=== PATIENT | female | born 1990 | race African-American/Black ===

== ENCOUNTER → 2019-12-23 11:09 | Outpatient (CLI) | payer SELFPAY ==
--- NOTE | ~2019-12-23 | US_ITS ---
EXAMINATION: US pelvic complete w TV DATE: 12/23/2019 11:57 INDICATION: Uterine leiomyoma TECHNIQUE: Multiple transabdominal and endovaginal sonographic images of the pelvis were obtained. COMPARISON: None. FINDINGS: The uterus measures 10.0 x 5.3 x 7.2 cm. There is a 5.3 x 4.9 x 5.2 cm mass with peripheral calcification in the uterine fundus. The endometrial complex measures 7 mm. The right ovary measures 4.3 x 2.9 x 3 cm. There is a 2.9 x 2.1 x 2.7 cm solid lesion of the right ovary. The left ovary esthela ures 4.3 x 4.9. There is normal vascular flow in the ovaries. There is no free fluid in the pelvis. IMPRESSION: 1. Calcified uterine fibroid measuring up to 5.3 cm. 2. Likely endometrioma of the right ovary. Follow-up ultrasound in 6-12 weeks is recommended. Reviewed, dictated and finalized at location A. IMPRESSION: 1. Calcified uterine fibroid measuring up to 5.3 cm. 2. Likely endometrioma of the right ovary. Follow-up ultrasound in 6-12 weeks i s recommended.
== END ==
PROVIDERS: Visit Provider Obstetrics & Gynecology
DX: D25.9 Leiomyoma of uterus, unspecified (principal)
CPT/HCPCS: 76830; 76856

== ENCOUNTER → 2020-01-16 13:12 | Outpatient (CLI) | payer SELFPAY ==
--- NOTE | ~2020-01-16 | US_ITS ---
EXAMINATION: US pelvic complete w TV DATE: 01/16/2020 13:54 INDICATION: Follow-up fibroids. Comparison:Ultrasound dated 12/23/2019 TECHNIQUE: Multiple transabdominal and endovaginal sonographic images of the pelvis performed. FINDINGS: The uterus measures 9.7 x 4.5 x 6.7 cm. There is a calcified uterine fibroid measuring 4.4 x 4.6 x 4.1 cm. The endometrial complex measures 6 mm. The right ovary measures 4.6 x 2.6 x 2.8 cm and the left ovary measures 3.5 x 2.5 x 1.9 cm. Left ovar y is unremarkable with follicular changes. Right ovary contains a 1.7 cm cyst. In addition, there is a solid isoechoic mass measuring 3 x 2 x 2.7 cm which is unchanged. There is no free fluid in the pelvis. There are no abnormal masses seen on either side. IMPRESSION: 1. Stable solid isoechoic right ovarian mass measuring 3 cm, most likely benign. Considerations inclu de endometrioma and dermoid. Consider correlation with follow-up ultrasound in 3-6 months. 2: Mildly enlarged uterus containing a 4.6 cm calcified fibroid. Reviewed, dictated and finalized at location A. IMPRESSION: 1. Stable solid isoechoic right ovarian mass measuring 3 cm, most likely benign . Considerations include endometrioma and dermoid. Consider correlation with fo llow-up ultrasound in 3-6 months. 2: Mildly enlarged uterus containing a 4.6 cm calcified fibroid.
== END ==
PROVIDERS: Visit Provider Obstetrics & Gynecology
DX: N83.209 Unspecified ovarian cyst, unspecified side (principal); D25.9 Leiomyoma of uterus, unspecified
CPT/HCPCS: 76830; 76856

== ENCOUNTER → 2020-05-20 14:02 | Outpatient (CLI) | payer SELFPAY ==
--- NOTE | ~2020-05-20 | US_ITS ---
US OB <=14 wk fetus w TV DATE: 05/20/2020 14:37 INDICATION: Gestational age determination TECHNIQUE: Real-time imaging via transabdominal and transvaginal approaches COMPARISON: 01/12/2020 pelvic ultrasound examination FINDINGS: The uterus measures 11.1 cm height, 6.4 cm AP and 7 cm transverse dimension. There is a 4.6 x 5.1 x 4.4 cm calcified uterine fibroid. An intrauterine gestational sac is identified with normal surrounding hyperechogenicity consistent wi th decidual reaction and normal amount of amniotic fluid. pole and yolk sac are detected. heart rate of 174 bpm. [place]-rump length measures 2.05 cm, consistent with 8 weeks 5 days +/- 5 days estimated gestational a ge; MANUELITO is 12/25/2020, compared to 12/26/2020 by LMP. 2 x 3.3 cm and 1.5 x 1.8 cm right ovarian cysts. The left ovary is unremarkable. No abnormal pelvic free fluid collection is detected. IMPRESSION: Estimated gestational age is 8 weeks 5 days +/- 5 days; MANUELITO by ultrasound is 12/25/2020 4.6 x 5.1 x 4.4 center calcified uterine fibroid Right ovarian cysts measuring up to 3.3 and 1.8 cm Reviewed, dictated and finalized at Location [facility]. Reviewed, dictated and finalized at location A. FIC INSPECTOR IMPRESSION: Estimated gestational age is 8 weeks 5 days +/- 5 days; MANUELITO by ultr asound is 12/25/2020 4.6 x 5.1 x 4.4 center calcified uterine fibroid Right ovarian cysts measuring up to 3.3 and 1.8 cm
== END ==
PROVIDERS: Visit Provider Obstetrics & Gynecology
DX: Z34.91 Encounter for supervision of normal pregnancy, unspecified, first trimester (principal); Z3A.08 8 weeks gestation of pregnancy; N83.201 Unspecified ovarian cyst, right side
CPT/HCPCS: 76801; 76817

== ENCOUNTER 2020-10-27 10:00 | Outpatient (RCR) | payer OTHER, SELFPAY ==
--- NOTE | 2020-09-28 12:37 | PTOPEVAL ---
PHYSICAL THERAPY EVALUATION AND PLAN OF CARE Thank you for referring Serafin Howard to [facility].? The patient is scheduled to be seen for therapy? 1x/week for 4 weeks. Please review, sign, date and return this plan of care TABATHA. I agree with and certify that the following plan of care is medically necessary. Referring Physician Date Attending Provider: Quang Brooks MD Evaluation Diagnosis low back pain and right radiculpathy Onset 07/2020 Subjective Information Elizabeth is here with c/o low Query Text:As Reported By Patient/ back pain with right Family radiculopathy and sometimes feels symptoms shooting down the right leg. She is 5months and is healthy at this time. States that sitting for long periods of time increases back pain. Self Report Pain Assessment Right Spine, Lumbar Reported Pain Level 2 Pain Description Aching Pain Score Pain Score 2: Self Report Interventions Used Interventions Used By Clinicians Exercise Lower Extremity Muscle Strength Testing Hip Strength Left Hip Flexion Strength 5 Normal Hip Extension Strength 4- Good - Hip Abduction Strength 4+ Good + Right Hip Flexion Strength 5 Normal Hip Extension Strength 3+ Fair + Hip Abduction Strength 4- Good - Knee Strength Bilateral Knee Flexion Strength 5 Normal Knee Extension Strength 5 Normal Posture Posture Standing Position Posture Evaluation View Posterior Head/C-Spine Posture Neutral Position Thorax Posture Bases Flared Lumbar Spine Posture Increased Lordosis Pelvis Posture Anteriorly Tilted,(R) Rotated Anterior Weight Distribution Balanced Additional Posture Comments single leg balance: positive Trendelenburg on each side, right side worse than left; pain when lifting right leg up Palpation Assessment Palpation Palpation tender to palpation along right SIJ and right glutes Special Test-Spine Lumbar Spine Special Tests Crossed Straight Leg Raise Test Negative Right,Negative Left Straight Leg Raise Test Negative Right,Negative Left PT Clinical Summary Elizabeth is a 30 yo female, 5months , presenting to outpatient physical therapy with new onset low back pain
--- NOTE | 2020-10-07 11:48 | PCPTNOTE ---
Patient did not show up for scheduled appointment this date; patient answered phone with reminder call stated she just forgot, wrote down next appointment time for october 14 at 11:15.
--- NOTE | 2020-10-14 09:29 | PCPTNOTE ---
Patient called & cancelled scheduled appointment this date due to walking this morning.
--- NOTE | 2020-10-21 10:27 | PCPTNOTE ---
Patient did not show up for scheduled appointment this date. Called to remind her of her next appointment on 10/27 at 10:00AM.
--- NOTE | 2020-10-27 10:14 | PCPTNOTE ---
Patient did not show up for scheduled appointment this date.
--- NOTE | 2020-10-27 10:14 | PCPTNOTE ---
PHYSICAL THERAPY DISCHARGE NOTE Attending Provider: Quang Brooks MD Patient:Serafin Howard Date of :1990 Patient has not returned for any further treatments since 09/28/20, therefore she will be discharged at this time. Patient?s initial visit was on 09/28/2020. She attended the evaluation and then cancelled 1 appointment and no showed 3 appointments. Thank you for referring this patient to [facility]. Please review, sign, date and return this discharge summary TABATHA. I have been updated about the patient's current status and I agree with discharge from the above service at this time. Referring Physician Date
== END 2020-10-28 13:01 | disposition home or self-care (01) ==
LOC: ANHPT 10:00
PROVIDERS: Visit Provider Obstetrics & Gynecology
DX: M54.31 Sciatica, right side (principal); M54.2 Cervicalgia
CPT/HCPCS: 97162

== ENCOUNTER 2021-05-04 10:00 | Outpatient (RCR) | payer OTHER, SELFPAY ==
--- NOTE | 2021-03-09 13:57 | PTOPEVAL ---
Thank you for referring Serafin Howard to [facility].? The patient is scheduled to be seen for therapy? 1-2 x/week for 5 weeks. Please review, sign, date and return this plan of care TABATHA. I agree with and certify that the following plan of care is medically necessary. Referring Physician Date Attending Provider: Aviva Moreland MD Problem Diagnosis low back pain and abdominal diastasis recti Onset 01/02/21 Additional Evaluation Detail She was running and occasional resistance activities. 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 Subjective Information Reports increased low back Query Text:As Reported By Patient/ pain with standing task, Family walking, supine position with right leg movement. STates pain in greater in right buttock and leg region. She has mild increased pain with bending forward. Denies any changes in pain with carrying objects. She received an epidural with increased right low back pain. She has been performing occasional walking. She has not been performing any exercises because of her abdominal weakness. Pain Assessment Lower Back Reported Pain Level 4 Pain Description Aching Pain Frequency Continuous Greatest Pain Intensity 6 Pain Aggravating Factors Bending,Exercise/Activity, Walking,Weight Bearing/ Standing Cervical and Lumbar ROM Lumbar ROM Lumbar Flexion Active Floor:Hands to: Lumbar Comments 100% trunk flex/ext, no pain Cervical and Lumbar Muscle Testing Lumbar Strength Upper Abdominal Strength 2 Poor Lower Abdominal Strength 2 Poor Lumbar Functional Strength Comments diastisis reci appears as ~3 finger seperation Lower Extremity Muscle Strength Testing Hip Strength Right Hip Flexion Strength 4 Good Hip Extension Strength 3- Fair - Hip Abduction Strength 3- Fair - Left Hip Flexion Strength 4 Good Hip Extension Strength 3 Fair Hip Abduction Strength 3- Fair - Knee Strength Bilateral Knee Flexion Strength 3+ Fair + Knee Extension Strength 5 Normal Posture Posture Standing Position Head/C-Spi
--- NOTE | 2021-03-23 12:43 | PCPTNOTE ---
Patient called & cancelled scheduled appointment this date, did not leave a reason. This is Pt's first CX.
--- NOTE | 2021-03-25 12:49 | PCPTNOTE ---
Patient did not show up for scheduled appointment this date. Called to remind her visit, states she attempted to call,but did not reach anyone. Reminded her of her next visit and the cancellation policy of 3 missed visits.
--- NOTE | 2021-04-07 12:49 | PCPTNOTE ---
Patient did not show up for scheduled appointment this date. Called and left message on VM. No additional visits scheduled.
--- NOTE | 2021-04-07 14:20 | PTOPEVAL ---
Physical Therapy Progress Note Thank you for referring Serafin Howard to [facility].See summary below for updated progress. ? The patient is scheduled to be seen for therapy?1 x/week for 4 weeks. Please review, sign, date and return this plan of care TABATHA. I agree with and certify that the following plan of care is medically necessary. Referring Physician Date Attending Provider: Aviva Moreland MD Diagnosis low back pain and abdominal diastisis recti Onset 01/02/21 Additional Evaluation Detail She was running and occasional resistance activities. 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 Subjective Information She is performing her HEP 1x/ Query Text:As Reported By Patient/ wk but not consistently. Family Reports improved low back pain , but cont to increase with prolonged standing. Improved romulo with supine position and bed mobility. She does feel imbalance with walking. Pain Assessment Timing of Pain Assessment Timing of Pain Assessment Re-assessment Pain Scale Pain Scale Used Numeric (1 - 10) Self Report Pain Assessment Lower Back Reported Pain Level 5 Pain Description Aching Pain Frequency Continuous Lowest Pain Intensity 5 Greatest Pain Intensity 7 Pain Score Pain Score 5: Self Report Interventions Used Interventions Used By Clinicians Education,Exercise Cervical and Lumbar ROM Lumbar ROM Lumbar Flexion Active Floor:Hands to: Lumbar Comments 100% trunk flex/ext, lateral flex pain with trunk ext and lateral flex to right Cervical and Lumbar Muscle Testing Lumbar Strength Upper Abdominal Strength 2+Poor+ Lower Abdominal Strength 2 Poor Lower Extremity Muscle Strength Testing Hip Strength Right Hip Flexion Strength 4 Good Hip Extension Strength 3 Fair Hip Abduction Strength 3+ Fair + Hip Adduction Strength 3 Fair Left Hip Flexion Strength 4 Good Hip Extension Strength 3 Fair Hip Abduction Strength 3 Fair Hip Adduction Strength 3 Fair Knee Strength Bilateral Knee Flexion Strength 4+ Good + Knee Extension Strength 5 Normal Posture Posture Supine Position Pelvis Posture (L) Rotated Anterior Palpation Assessment Palpation Palpation tenderness of right PSIS,
--- NOTE | 2021-04-21 14:20 | PCPTNOTE ---
Patient did not show up for scheduled appointment this date. Called pt and informed them of their next appointment on 04/27/21.
--- NOTE | 2021-05-04 09:36 | PCPTNOTE ---
Patient called & cancelled scheduled appointment this date due to visitor restriction and unable to find a sitter for her baby. [ ]
--- NOTE | 2021-05-24 07:28 | PCPTNOTE ---
Admitting Provider: Attending Provider: Aviva Moreland MD Patient:Serafin Howard Date of :1990 Physical Therapy Discharge Summary Patient has not returned for any further treatments since 04/28/2021, therefore she will be discharged at this time. Patient?s initial visit was on 03/09/2021 12:30 and she had a total of 8 visits with 4 missed visits. The goals have been partially met. Thank you for referring this patient to [facility]. Please review, sign, date and return this discharge summary TABATHA. I have been updated about the patient's current status and I agree with discharge from the above service at this time. Referring Physician Date
== END 2021-05-24 08:45 | disposition home or self-care (01) ==
LOC: ANHPT 10:00
PROVIDERS: Visit Provider Urology
DX: M54.50 Low back pain, unspecified (principal); M62.08 Separation of muscle (nontraumatic), other site
CPT/HCPCS: 97014; 97110; 97140; 97162; G0283

== ENCOUNTER 2022-02-10 09:55 | Outpatient (CLI) | payer OTHER, SELFPAY | END 2022-02-10 09:56 | disposition home or self-care (01) | PROVIDERS: Visit Provider Obstetrics & Gynecology | DX: N92.6 Irregular menstruation, unspecified (principal) | CPT/HCPCS: 36415; 84702 ==

== ENCOUNTER 2022-03-14 14:57 | Emergency (ER) | payer OTHER, SELFPAY ==
--- NOTE | 2022-03-14 15:00 | ED.URI ---
HPI - URI/Sore Throat General Chief Complaint: Upper Respiratory Infection Stated Complaint: sore throat Time Seen by Provider: 03/14/22 15:00 Source: patient and RN notes reviewed History of Present Illness HPI Narrative: Patient is a 31-year-old female who presents to urgent care with complaints of a sore throat for 2 days. Patient denies a sinus congestion, fever, nausea, vomiting or headache. Patient states that she is approximately 8 weeks . Patient is not taking anything [id number] for her symptoms no other acute complaints. No acute distress noted. Patient aware of the plan of care. Some parts of this dictation were generated by voice recognition software and may contain typographical and/or grammatical inaccuracies. Related Data Allergies Allergy/AdvReac Type Severity Reaction Status Date / Time No Known Allergies Allergy Unverified 03/14/22 15:08 Review of Systems Review of Systems: CONSTITUTIONAL: Denies fever, chills, or sweats. EYES: Denies visual changes, redness, or discharge. ENT: Denies rhinorrhea, congestion, otalgia. Reports of sore throat CARDIOVASCULAR: Denies chest pain, palpitations, or edema. RESPIRATORY: Denies cough or dyspnea. GASTROINTESTINAL: Denies abdominal pain, nausea, vomiting, or diarrhea. GENITOURINARY: Denies dysuria or hematuria. SKIN: Denies rash or itching. MUSCULOSKELETAL: Denies back pain, joint pain, or myalgia. NEUROLOGIC: Denies headache, numbness, or weakness. All other systems reviewed are negative, except as documented in HPI. PMFSH Comments At the time of my signature, I reviewed and agree with the nursing past medical, surgical, social, and family history. There is no relevant family history pertinent to the patient complaint. Exam Narrative: GENERAL: This is a well-nourished, well-developed patient, in no apparent distress. HEAD: normocephalic, atraumatic. EYES: PERRL. Sclera clear/white. Vision is grossly intact. EARS: External ears normal, auditory canals clear and without drainage, TMs normal without perforation. Hearing grossly intact. NOSE: External nose normal with no obvious nasal discharge, nares without redness, no rhinorrhea. THROAT: Mucous membranes moist, posterior pharynx clear. Mild postnasal drainage NECK: Neck supple, non-tender without lymphadenopathy CARDIOVASCULAR: Regular rate and rhythm without murmurs, gallops, or rubs. RESPIRATORY: Clear to auscultation. Breath sounds equal bilaterally. No wheezes, rales, or rhonchi. SKIN: warm, intact with no suspicious lesions or rash, good texture and turgor. NEURO: awake, alert, and oriented to person, place and time. There were no obvious focal neurologic abnormalities. EXTREMITIES: No clubbing, cyanosis, or edema. Course Course Level of Care: Express Care Visit Vital Signs Vital signs: Vital Signs Temperature 97.7 F 03/14/22 15:14 Pulse Rate 80 03/14/22 15:14 Respiratory Rate 16 03/14/22 15:14 Blood Pressure 109/68 03/14/22 15:14 Pulse Oximetry 100 03/14/22 15:14 Temperature 97.7 F 03/14/22 15:14 Pulse Rate 80 03/14/22 15:14 Respiratory Rate 16 03/14/22 15:14 Blood Pressure 109/68 03/14/22 15:14 Pulse Oximetry 100 03/14/22 15:14 Reviewed MDM - URI/Sore Throat MDM Narrative Medical decision making narrative: Reviewed lab results with the patient. She is aware that her strep swab was positive. Advised her to complete the oral antibiotic regimen as prescribed. Be sure to eat and drink with the medication. Change her toothbrush within 2-3 days. You are considered contagious for 24 hours after antibiotic treatment and must be fever free. [id number] antihistamine such as Zyrtec or Claritin is safe in and may help relieve symptoms. Use Tylenol as needed. Follow-up with your PCP within 2-5 days or for worsening symptoms improve. Differential Diagnosis Differential diagnosis: Likely upper respiratory infection, croup, otitis media,
[2022-03-14 15:14] VITALS: BP 109/68; PULSE 80; RESP 16; TEMP 36.5; O2SAT 100
== END 2022-03-14 15:23 | disposition home or self-care (01) ==
PROVIDERS: Emergency Provider Nurse Practitioner Family
DX: J02.0 Streptococcal pharyngitis (principal)
CPT/HCPCS: 87880; 99213; G0463

== ENCOUNTER 2023-02-14 14:22 | Emergency (ER) | payer OTHER, SELFPAY ==
[2023-02-14 14:32] VITALS: BP 109/69; PULSE 80; RESP 16; TEMP 37.3; O2SAT 100
--- NOTE | 2023-02-14 15:03 | ED.URI ---
HPI - URI/Sore Throat General Chief Complaint: Upper Respiratory Infection Stated Complaint: Cold symptoms Time Seen by Provider: 02/14/23 14:55 Source: patient, RN notes reviewed and old records reviewed Mode of arrival: ambulatory Limitations: no limitations History of Present Illness HPI Narrative: 32 year old female who presents to [facility] care with complaints of cough, sinus congestion and drainage, headache for the past 4-5 days. Patient is here stating she needs medication for her sinus infection, she is breast feeding. Patient reports that she has sinus pressure in her face and headache discomfort with some drainage, denies any sore throat or ear pain, reports cough, denies any known fevers or any body aches. MD elicited complaint: cough, rhinorrhea, nasal congestion, sinus pain and other (headache) Onset (ago): day(s) (5) Severity: moderate Able to tolerate fluids by mouth: Yes Treatments prior to arrival: acetaminophen Related Data Home Medications Medication Instructions Recorded Confirmed hydroxyzine HCl 25 mg tablet 25 mg PO DAILY 02/14/23 02/14/23 Allergies Allergy/AdvReac Type Severity Reaction Status Date / Time No Known Allergies Allergy Unverified 02/14/23 14:25 Review of Systems Review of Systems: CONSTITUTIONAL: Denies malaise, chills, sweats, or fever. EYES: Denies visual changes, redness, or discharge. ENT: Reports rhinorrhea, congestion, sinus pain,no otalgia and sore throat. CARDIOVASCULAR: Denies chest pain, palpitations, or edema. RESPIRATORY: Reports cough.? Denies dyspnea. GASTROINTESTINAL: Denies abdominal pain, nausea, vomiting, diarrhea SKIN: Denies rash or itching. MUSCULOSKELETAL: Denies myalgia. NEUROLOGIC:reports headache. All systems reviewed & are unremarkable except as noted in HPI and below PMFSH Past Medical History Medical History (Updated 02/15/23 @ 10:41 by Tia Chandra NP) Vaginal delivery x3 Social History Social History (Updated 02/15/23 @ 10:41 by Tia Chandra NP) Smoking status: Never smoker Alcohol intake: former Alcohol use details: social Substance use: never Living arrangements: with family Gender identity (if verbalized by the patient): Female Comments At time of signature, agree with nursing past medical, surgical, social and family history. There is no relevant family history pertinent to the presenting complaint Exam Narrative: GENERAL: Well-appearing, well-nourished, and in no acute distress. HEAD: Normocephalic EYES: PERRLA, conjunctivae clear ENT: Nares clear, turbinates edematous and erythematous, clear discharge.sinus pressure and headache. Mucous membranes moist. TM pearly gould with dull light reflex bilaterally; no tragal tenderness. Oropharynx erythematous without lesions. Tonsils not enlarged and without exudate, no drooling, no hoarseness, no trismus, uvula midline.post nasal drainage NECK: Supple. No lymphadenopathy CHEST: Clear to auscultation, breath sounds equal. No wheezing, rhonchi, rales, or stridor. No respiratory distress, speaks in full sentences.cough, SAO2 100% on room air HEART: Regular rate and rhythm. No murmur heard. SKIN: Warm, dry, no rash. NEURO: Alert and oriented x3. PSYCH: Normal mood and affect Course Course Emergency Course: Patient is aware of diagnosis, understands and agrees to treatment plan.? Anticipatory guidance given.? Patient agrees to follow-up as directed and is aware of reasons to seek care at the emergency department. Portions of this record may have been created with voice recognition software Level of Care: Express Care Visit Vital Signs Vital signs: Vital Signs Temperature 37.3 C 02/14/23 14:32 Pulse Rate 80 02/14/23 14:32 Respiratory Rate 16 02/14/23 14:32 Blood Pressure 109/69 02/14/23 14:32 Pulse Oximetry 100 02/14/23 14:32 Temperature 37.3 C 02/14/23 14:32 Pulse Rate 80 02/14/23 14:32 Re
== END 2023-02-14 15:23 | disposition home or self-care (01) ==
PROVIDERS: Emergency Provider Registered Nurse
DX: J06.9 Acute upper respiratory infection, unspecified (principal)
CPT/HCPCS: 99213; G0463

== ENCOUNTER 2023-10-24 14:15 | Outpatient (RCR) | payer OTHER, SELFPAY ==
--- NOTE | 2023-08-01 11:49 | OPREHPOC ---
Outpatient Therapy Plan of Care This is a Multidisciplinary Plan of Care that may contain components documented by all disciplines (PT, OT, and ST.) PT Problem 1 PT Problem #1 Knowledge Deficit PT Goal 1 Goal 1. Patient will perform independent HEP 2. Patient will verbalize urge suppression strategies Target Visit 2 PT Problem 2 PT Problem #2 Pain PT Goal 1 Goal 1. Back pain no higher than 2/10 with normal ADL's 2. No abdominal pain or need to brace with a cough or sneeze 3. No pelvic pain on exam Target Visit 5 PT Problem 3 PT Problem #3 Impaired Strength PT Goal 1 Goal 1. Improve diastasis to 3 finger width in supine to improve core stability with lifting activities at home 2. Pelvic floor contraction to 4/5 to decrease incontinence PT Problem 4 PT Problem #4 Impaired Functional ADLs PT Goal 1 Goal 1. Patient able to hold urine at least 30 minutes 2. Patient will report no incontinence for at least 2 weeks
--- NOTE | 2023-08-01 11:49 | PTOPEVAL1 ---
Assessment and note entered by Gloria Downey DPT Evaluation Information Assessment Status Evaluation Subjective Information Pt reports she is noticing back pain (highest 5/10 and lowest 0/10) and has been diagnosed with a diastasis recti. Back pain with activities at home and also reports fatigue with normal cooking/ cleaning. Has to brace her abdomen with a cough/ sneeze due to diastasis. Has gotten incontinence with urgency, may get a small amount with a cough or a sneeze. Pt is 10 months from a C- section, also has a 7 year old via and a 2 year old via vaginal delivery. Tearing with her vaginal delivery which led to pain with intercourse for a time. Voids 3-4 times a day and 1 time at night. Is and drinking a lot of water. Can hold urge a few minutes. Incontinence occurs maybe once a week. Denies pain with urination. Symptoms have worsened after her second and then third baby. BM up to 2 times a day , denies pain. No other [employer] or b/b issues. Patient goal: improve strength, improve posture and being able to stand longer and do activities at home without back pain. Be able to hold urine. Previously was able to stand and do ADL's without limitation, no back pain or incontinence. Returns to [place] and is consulting for surgery to repair diastasis. Reported Pain Level Pain Score 0: Self Report Assessment PT Clinical Summary The patient is presenting 10 months after her second and also has 1 previous vaginal delivery with a diastasis recti, back pain, and urinary incontinence. She presents with significantly decreased core strength due to diastasis, decreased hip strength, and decreased pelvic floor strength. These impairments are contributing to her pain and difficulty with normal activities at home and her incontinence. She will highly benefit from therapy to address these impairments in order to improve strength, reduce pain, reduce incontinence, and restore function. Plan of Care Interventions Electrical Stimulation,Gait Training,Hot Pack/Cold Pack,Manual Therapy,Neuro Re-education,Patient/ Caregiver Education,Therapeutic Activities, Therapeutic Exercise PT Services Indicated
--- NOTE | 2023-08-17 14:35 | PCPTNOTE ---
Patient called to cancel appointment on 08/17/23 due to a personal conflict
--- NOTE | 2023-09-08 13:19 | OPREHPOC ---
Outpatient Therapy Plan of Care This is a Multidisciplinary Plan of Care that may contain components documented by all disciplines (PT, OT, and ST.) PT Problem 1 PT Problem #1 Knowledge Deficit PT Goal 1 Goal 1. Patient will perform independent HEP 2. Patient will verbalize urge suppression strategies Target Visit 2 Progress Met PT Problem 2 PT Problem #2 Pain PT Goal 1 Goal 1. Back pain no higher than 2/10 with normal ADL's 2. No abdominal pain or need to brace with a cough or sneeze 3. No pelvic pain on exam Target Visit 11 Progress Partially Met Comment 1. 5/10 highest 2. some progress 3. met PT Problem 3 PT Problem #3 Impaired Strength PT Goal 1 Goal 1. Improve diastasis to 3 finger width in supine to improve core stability with lifting activities at home 2. Pelvic floor contraction to 4/5 to decrease incontinence Target Visit 11 Progress Partially Met Comment 1. not met 2. met PT Problem 4 PT Problem #4 Impaired Functional ADLs PT Goal 1 Goal 1. Patient able to hold urine at least 30 minutes 2. Patient will report no incontinence for at least 2 weeks Target Visit 11 Progress Met
--- NOTE | 2023-09-08 13:19 | PTOPPROG ---
Assessment and note entered by Gloria Downey DPT Evaluation Information Assessment Status Progress Subjective Information Pt reports improvements with ability to hold urine at least 30 minutes at a time. Reports no incontinence for at least a few weeks. Highest back pain 5/10 and lowest 3/10. Still notices pain with standing like to do dishes. Still some difficulty lifting, especially her middle child. Return to MD not scheduled currently. Assessment PT Clinical Summary The patient has made some progress in therapy overall. She reports decreased back pain, decreased stress incontinence, and decreased urinary urgency. She demonstrates improved LE strength and improved pelvic floor strength/ endurance. She continues to display the same width diastasis recti. Due to her progress but continued pain and difficulty with activities like lifting her children she will benefit from further therapy to decrease pain, improve diastasis, and improve function. Plan of Care Interventions Electrical Stimulation,Gait Training,Hot Pack/Cold Pack,Manual Therapy,Neuro Re-education,Patient/ Caregiver Education,Therapeutic Activities, Therapeutic Exercise PT Services Indicated Yes Treatment Frequency and 1 time a week for 6 visits Duration These treatments will address the objective and functional deficits as defined above. The patient will be advanced safely and appropriately in order for the patient to progress towards his/her prior level of function. Additional exercises will be introduced and as well as a comprehensive home exercise program upon discharge, if needed, ?to ensure carryover of functional gains achieved in the clinic. This treatment plan has been reviewed and agreement upon by the patient.
--- NOTE | 2023-10-05 14:08 | PCPTNOTE ---
Patient cancelled appointment for 10/05/23.
--- NOTE | 2023-10-17 11:57 | PCPTNOTE ---
Patient did not show up for appointment scheduled 10/17/23.
--- NOTE | 2023-10-24 15:04 | OPREHPOC ---
Outpatient Therapy Plan of Care This is a Multidisciplinary Plan of Care that may contain components documented by all disciplines (PT, OT, and ST.) PT Problem 1 PT Problem #1 Knowledge Deficit PT Goal 1 Goal 1. Patient will perform independent HEP 2. Patient will verbalize urge suppression strategies Target Visit 2 Progress Met PT Problem 2 PT Problem #2 Pain PT Goal 1 Goal 1. Back pain no higher than 2/10 with normal ADL's 2. No abdominal pain or need to brace with a cough or sneeze 3. No pelvic pain on exam Target Visit 13 Progress Partially Met Comment 1. 5/10 highest 2. some progress 3. met PT Problem 3 PT Problem #3 Impaired Strength PT Goal 1 Goal 1. Improve diastasis to 3 finger width in supine to improve core stability with lifting activities at home 2. Pelvic floor contraction to 4/5 to decrease incontinence Target Visit 13 Progress Partially Met Comment 1. not met 2. met PT Problem 4 PT Problem #4 Impaired Functional ADLs PT Goal 1 Goal 1. Patient able to hold urine at least 30 minutes 2. Patient will report no incontinence for at least 2 weeks Target Visit 11 Progress Met
--- NOTE | 2023-10-24 15:04 | PTOPPROG ---
Assessment and note entered by Gloria Downey DPT Evaluation Information Assessment Status Progress Subjective Information Pt reports she is noticing improvements with her bladder control and is not running to the bathroom . Highest back pain 5/10 recently and lowest 0/10. No incontinence. Feels like she is able to do more at home with less pain and difficulty, like standing in the kitchen or caring for her children . Her works long hours and she must do most of the household cleaning and children's activities. No return to MD scheduled currently. Assessment PT Clinical Summary The patient has continued to make good progress in therapy and reports overall decreased back pain, no urinary urgency or incontinence, and improved function with cleaning and lifting tasks at home. She does continue to display JAMES approximately 4 finger width. Due to her progress but continued back pain and diastasis she will benefit from further therapy to safely return to prior level of function. Plan of Care Interventions Electrical Stimulation,Gait Training,Hot Pack/Cold Pack,Manual Therapy,Neuro Re-education,Patient/ Caregiver Education,Therapeutic Activities, Therapeutic Exercise PT Services Indicated Yes Treatment Frequency and 1 visit every other week x 4 visits Duration These treatments will address the objective and functional deficits as defined above. The patient will be advanced safely and appropriately in order for the patient to progress towards his/her prior level of function. Additional exercises will be introduced and as well as a comprehensive home exercise program upon discharge, if needed, ?to ensure carryover of functional gains achieved in the clinic. This treatment plan has been reviewed and agreement upon by the patient.
--- NOTE | 2023-11-09 14:37 | PCPTNOTE ---
This treatment is being continued on visit number [id number]. Please see documentation on both accounts to view progress. Completed interventions, outcomes, and problems have been marked as Inactive to facilitate the copying of the Care plan routine for recurring accounts.
== END 2023-10-30 23:59 | disposition home or self-care (01) ==
LOC: ANHPT 14:15
DX: M62.08 Separation of muscle (nontraumatic), other site (principal)
CPT/HCPCS: 97112; 97140; 97162; 97530

== ENCOUNTER 2023-11-07 08:26 | Outpatient (RCR) | payer OTHER, SELFPAY ==
--- NOTE | 2023-11-07 11:29 | PCPTNOTE ---
This treatment is being continued on visit number [id number]. Please see documentation on both accounts to view progress. Completed interventions, outcomes, and problems have been marked as Inactive to facilitate the copying of the Care plan routine for recurring accounts.
--- NOTE | 2023-11-07 11:29 | OPREHPOC ---
Outpatient Therapy Plan of Care This is a Multidisciplinary Plan of Care that may contain components documented by all disciplines (PT, OT, and ST.) PT Problem 1 PT Problem #1 Knowledge Deficit PT Goal 1 Goal 1. Patient will perform independent HEP 2. Patient will verbalize urge suppression strategies Target Visit 2 Progress Met PT Problem 2 PT Problem #2 Pain PT Goal 1 Goal 1. Back pain no higher than 2/10 with normal ADL's 2. No abdominal pain or need to brace with a cough or sneeze 3. No pelvic pain on exam Target Visit 13 Progress Partially Met PT Problem 3 PT Problem #3 Impaired Strength PT Goal 1 Goal 1. Improve diastasis to 3 finger width in supine to improve core stability with lifting activities at home 2. Pelvic floor contraction to 4/5 to decrease incontinence Target Visit 13 Progress Partially Met PT Problem 4 PT Problem #4 Impaired Functional ADLs PT Goal 1 Goal 1. Patient able to hold urine at least 30 minutes 2. Patient will report no incontinence for at least 2 weeks Target Visit 11 Progress Met
--- NOTE | 2023-11-21 09:42 | PCPTNOTE ---
Patient called to cancel appointment due to personal conflict.
--- NOTE | 2024-01-04 09:00 | PTOPDC ---
Assessment and note entered by Gloria Downey, DPT Evaluation Information Assessment Status Discharge - Pt Not Present Subjective Information - Assessment PT Clinical Summary The patient has not attended therapy since 11/07/23 . She will be discharged this date. Plan of Care PT Services Indicated No
== END 2024-01-04 11:47 | disposition home or self-care (01) ==
LOC: ANHPT 08:26
DX: M62.08 Separation of muscle (nontraumatic), other site (principal)
CPT/HCPCS: 97112; 97140